=== PATIENT | male | born 1955 | race Caucasian/White ===

== ENCOUNTER 2019-11-12 10:33 | Inpatient (IN) | payer OTHER ==
[2019-11-12] MEDS ORDERED: Sodium Chloride 0.9% 10 ML Syringe FLUSH PRN (10:47)
[2019-11-12] MEDS ORDERED: Sodium Chloride 0.9% 1,000 ML IV ONE (10:49)
[2019-11-12] MEDS ORDERED: Albuterol/Ipratropium 3.0-0.5 MG/3 ML Neb Soln NEB ONE (10:51)
[2019-11-12] MEDS ORDERED: methylPREDNISolone Sodium Succinate 125 MG/2 ML SDV IVPUSH ONE (10:51)
[2019-11-12] MEDS ORDERED: Ondansetron 4 MG/2 ML SDV IV ONE (11:04)
[2019-11-12 11:30] LABS: ANION GAP 15.2; CHLORIDE,CL 99 mmol/L (101-111); SODIUM,NA 135 mmol/L (135-145)
[2019-11-12] MEDS ORDERED: Sodium Chloride 0.9% 1,000 ML IV SCH (12:15)
[2019-11-12] MEDS ORDERED: Sodium Chloride 0.9% 500 ML IV SCH (12:15)
[2019-11-12] MEDS ORDERED: Azithromycin 500 MG in Sodium Chloride 0.9% 250 ML IV ONE (12:26)
[2019-11-12] MEDS ORDERED: cefTRIAXone 2 GM in Sodium Chloride 0.9% 100 ML IV ONE (12:26)
--- NOTE | 2019-11-12 12:39 | EDM.PDOC ---
Scribed by Margaret Power 11/12/19 1102 for Perry Mar MD ED HPI GENERAL MEDICAL PROBLEM - General Chief Complaint: Respiratory Problem Stated Complaint: CHEST TIGHTNESS, FLU Time Seen by Provider: 11/12/19 10:42 Source of Information: Reports: Patient, RN, RN Notes Reviewed History Limitations: Reports: No Limitations - History of Present Illness INITIAL COMMENTS - FREE TEXT/NARRATIVE: Patient presents to ER stating that he has been sick since 11/03/19. Temperature on Wednesday was 101F. Pt c/o having no energy, no appetite, and generalized body aches. Admits to nonproductive cough. Nausea today, no vomiting or diarrhea. No influenza vaccine this year. Also c/o chills and shaking. No Tylenol today. Had Mucinex last night. 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 Onset: Gradual Onset Date: 11/03/19 Duration: Constant, Getting Worse Location: Reports: Generalized Severity: Severe Improves with: Reports: None Worsens with: Reports: None Context: Reports: Sick Contact ( has "viral flu symptoms") Associated Symptoms: Reports: No Other Symptoms Treatments LOT ASSOCIATE: Reports: Acetaminophen, Other Medication(s) 0 Pain Score (Numeric/FACES): 6 - Related Data Allergies Allergy/AdvReac Type Severity Reaction Status Date / Time No Known Allergies Allergy Verified 11/12/19 10:37 Home Meds: Home Meds . [No Known Home Meds] 11/12/19 [History] Past Medical History Respiratory History: Reports: Other (See Below) ([facility] ulises. Pulmonary histoplasmosis.) Endocrine/Metabolic History: Reports: Other (See Below) (hyponatremia) Dermatologic History: Reports: Psoriasis - Past Surgical History GI Surgical History: Reports: Colonoscopy Social & Family History - Family History Family Medical History: Noncontributory - Living Situation & Occupation Living situation: Reports: ED ROS GENERAL - Review of Systems Review Of Systems: Comprehensive ROS is negative, except as noted in HPI. ED EXAM, GENERAL - Physical Exam Exam: See Below Exam Limited By: No Limitations General Appearance: Alert, WD/WN, No Apparent Distress, Other (Acutely ill but non-toxic appearing) Eye Exam: Bilateral Eye: Normal Inspection Ears: Normal External Exam Nose: Normal Inspection, Normal Mucosa, No Blood Throat/Mouth: Normal Lips, Normal Teeth, Normal Gums, Normal Oropharynx, Normal Voice, No Airway Compromise, Other (Dry oral mucosa) Head: Atraumatic, Normocephalic Neck: Normal Inspection, Supple, Non-Tender, Full Range of Motion. No: Lymphadenopathy (L), Lymphadenopathy (R) Respiratory/Chest: No Respiratory Distress, No Accessory Muscle Use, Decreased Breath Sounds, Crackles, Rhonchi (Rt base). No: Rales, Wheezing, Stridor Cardiovascular: Normal Peripheral Pulses, Regular Rate, Rhythm, No Edema, No Murmur, Tachycardia GI/Abdominal: Normal Bowel Sounds, Soft, Non-Tender, No Organomegaly, No Distention, No Abnormal Bruit, No Mass Back Exam: Normal Inspection Extremities: Normal Inspection, Normal Range of Motion, Non-Tender, Normal Capillary Refill, No Pedal Edema Neurological: Alert, Oriented, CN II-XII Intact, Normal Cognition, Normal Gait, No Motor/Sensory Deficits Psychiatric: Depressed Mood, Flat Affect Skin Exam: Warm, Dry, Intact, Normal Color, No Rash Course - Vital Signs Last Recorded V/S: Last Vital Signs Temp 99.7 F 11/12/19 10:40 Pulse 101 H 11/12/19 11:39 Resp 16 11/12/19 11:39 BP 129/72 11/12/19 11:39 Pulse Ox 94 L 11/12/19 11:39 - Orders/Labs/Meds Orders: Active Orders 24 hr Category Date Time Status Peripheral IV Care [RC] . DIRECTED Care 11/12/19 10:48 Active RT Aerosol Therapy [RC] ASDIRECTED Care 11/12/19 10:52 Active CULTURE BLOOD [BC] Stat Lab 11/12/19 10:48 Ordered CULTURE BLOOD [BC] Stat Lab 11/12/19 10:54 Received INFLUENZA A+B AG SCREEN [RM] Stat Lab 11/12/19 10:51 Received Azithromycin [Zithromax] 500 mg Med 11/12/19 12:26 Active Sodium Chloride 0.9% [Normal Saline] 250 ml IV ONETIME Sodium Chloride 0.9% [Normal Saline] 1,000 ml Med 11/12/19 12:15 Active IV ASDIRECTED Sodium Chloride 0.9% [Saline Flush] Med 11/12/19 10:47 Active 10 ml FLUSH ASDIRECTED PRN cefTRIAXone [Rocephin] 2 gm Med 11/12/19 12:26 Active Sodium Chloride 0.9% [Normal Saline] 100 ml IV ONETIME Blood Culture x2 Reflex Set [OM.PC] Stat Oth 11/12/19 10:47 Ordered Peripheral IV Insertion Adult [OM.PC] Stat Oth 11/12/19 10:47 Ordered Medication Orders Sodium Chloride (Normal Saline) 1,000 mls @ 999 mls/hr IV ASDIRECTED THEA Last Admin: 11/12/19 12:14 Dose: 999 mls/hr Azithromycin 500 mg/ Sodium (Chloride) 250 mls @ 250 mls/hr IV ONETIME ONE Stop: 11/12/19 13:25 Ceftriaxone Sodium 2 gm/ (Sodium Chloride) 100 mls @ 200 mls/hr IV ONETIME ONE Stop: 11/12/19 12:55 Sodium Chloride (Saline Flush) 10 ml FLUSH ASDIRECTED PRN PRN Reason: Keep Vein Open Last Admin: 11/12/19 11:04 Dose: 10 ml Labs: Laboratory Tests 11/12/19 11/12/19 11/12/19 Range/Units 10:54 10:54 10:54 WBC 12.6 H (5.0-10.0) 10^3/uL RBC 5.24 (4.6-6.2) 10^6/uL Hgb 15.2 (14.0-18.0) g/dL Hct 44.1 (40.0-54.0) % MCV 84.2 (80-100) fL MCH 29.0 (27.0-34.0) pg MCHC 34.5 (33.0-35.0) g/dL Plt Count 209 (150-450) 10^3/uL Neut % (Auto) 90.2 H (42.2-75.2) % Lymph % (Auto) 5.5 L (20.5-50.1) % Dane % (Auto) 4.0 (2-8) % Eos % (Auto) 0.1 L (1.0-3.0) % Baso % (Auto) 0.2 (0.0-1.0) % Sodium 135 (135-145) mmol/L Potassium 4.2 (3.6-5.0) mmol/L Chloride 99 L (101-111) mmol/L Carbon Dioxide 25.0 (21.0-31.0) mmol/L Anion Gap 15.2 BUN 20 H (7-18) mg/dL Creatinine 1.1 (0.6-1.3) mg/dL Est Cr Clr Drug Dosing 62.83 mL/min Estimated GFR (MDRD) > 60 BUN/Creatinine Ratio 18.18 Glucose 113 H (74-105) mg/dL Lactic Acid 1.4 (0.5-2.0) mmol/L Calcium 8.8 (8.4-10.2) mg/dl Total Bilirubin 1.1 H (0.2-1.0) mg/dL AST 26 (10-42) IU/L ALT 24 (10-60) IU/L Alkaline Phosphatase 63 (42-121) IU/L Troponin I < 0.02 (0.00-0.02) ng/ml Total Protein 7.3 (6.7-8.2) g/dl Albumin 4.0 (3.2-5.5) g/dl Globulin 3.3 Albumin/Globulin Ratio 1.21 Influenza A/B: pending due to lab equipment malfunction. Meds: Medications Generic Name Dose Route Start Last Admin Trade Name Freq PRN Reason Stop Dose Admin Sodium Chloride 1,000 mls @ 999 mls/hr 11/12/19 12:15 11/12/19 12:14 Normal Saline IV 999 mls/hr ASDIRECTED THEA Administration Azithromycin 500 mg/ Sodium 250 mls @ 250 mls/hr 11/12/19 12:26 Chloride IV 11/12/19 13:25 ONETIME ONE Ceftriaxone Sodium 2 gm/ 100 mls @ 200 mls/hr 11/12/19 12:26 Sodium Chloride IV 11/12/19 12:55 ONETIME ONE Sodium Chloride 10 ml 11/12/19 10:47 11/12/19 11:04 Saline Flush FLUSH 10 ml ASDIRECTED PRN Administration Keep Vein Open Discontinued Medications Generic Name Dose Route Start Last Admin Trade Name Freq PRN Reason Stop Dose Admin Albuterol/Ipratropium 3 ml 11/12/19 10:51 11/12/19 11:03 Duoneb 3.0-0.5 Mg/3 Ml NEB 11/12/19 10:52 3 ml ONETIME ONE Administration Sodium Chloride 1,000 mls @ 999 mls/hr 11/12/19 10:49 11/12/19 11:03 Normal Saline IV 11/12/19 11:49 999 mls/hr .BOLUS ONE Administration Sodium Chloride 500 mls @ 999 mls/hr 11/12/19 12:15 Normal Saline IV .BOLUS THEA Methylprednisolone Sodium Succinate 125 mg 11/12/19 10:51 11/12/19 11:02 Solu-Medrol IVPUSH 11/12/19 10:52 125 mg ONETIME ONE Administration Ondansetron HCl 4 mg 11/12/19 11:04 11/12/19 11:21 Zofran IV 11/12/19 11:05 4 mg ONETIME ONE Administration - Radiology Interpretation Free Text/Narrative:: [facility] Final Radiology Report Call: [phone] assistance Online chat: [email or web address] Name: JESSE COATS Age: 63Years M Date: 11/12/2019 SSN: -- : [id number] Study: XR CHEST 2 VIEWS FRONTAL & LAT Requesting Physician: PERRY MAR Images: 2 Addl Studies: Provided Clinical History: Contrast: Contrast Medium: Contrast Amount: Contrast Method: CONFIDENTIALITY STATEMENT This report is intended only for use by the referring physician, and only in accordance with law. If you received this in error, call [phone]. Page 1 of 1 PROCEDURE INFORMATION: Exam: XR Chest, 2 Views Exam date and time: 11/12/2019 10:58 AM Age: 63 years old Clinical indication: Cough and fever TECHNIQUE: Imaging protocol: XR of the chest Views: 2 views. COMPARISON: CT Chest w Cont 01/31/2018 9:07 AM FINDINGS: Lungs: Subsegmental atelectasis at the right lung base. Pleural space: Unremarkable. No pleural effusion. No pneumothorax. Heart/Mediastinum: Unremarkable. No cardiomegaly. Bones/joints: Unremarkable. IMPRESSION: Subsegmental atelectasis at the right lung base. Thank you for allowing us to participate in the care of your patient. Dictated and Authenticated by: Nathan Darling MD 11/12/2019 11:55 AM Central Time ([place] & [place]) - Re-Assessments/Exams Free Text/Narrative Re-Assessment/Exam: 11/12/19 12:35 Pt arrives with Hx of febrile illness with cough and shortness of breath. Oxygen saturations 88-89% on RA and heart rate 125 on arrival to ER. Plan to admit the pt to Dr. Olivas to the med/surg. unit. Departure - Departure Time of Disposition: 12:36 (admitted to Dr. Olivas) Disposition: Admitted As Inpatient 67 Condition: Fair Clinical Impression: Hypoxia Pneumonia Qualifiers: Pneumonia type: due to unspecified organism Laterality: right Lung location: lower lobe of lung Qualified Code(s): J18.9 - Pneumonia, unspecified organism - Discharge Information *PRESCRIPTION DRUG MONITORING PROGRAM REVIEWED*: No *COPY OF PRESCRIPTION DRUG MONITORING REPORT IN PATIENT FANTASMA: No Referrals: Reggie Black MD [Primary Care Provider] - Forms: ED Department Discharge Sepsis Event Note - Evaluation Sepsis Screening Result: Possible Sepsis Risk - Focused Exam Vital Signs: Vital Signs Temp Pulse Resp BP Pulse Ox 11/12/19 11:39 101 H 16 129/72 94 L 11/12/19 10:42 93 L 11/12/19 10:40 99.7 F 125 H 122/73 18 L Date Exam was Performed: 11/12/19 Time Exam was Performed: 12:39 - My Orders Last 24 Hours: My Active Orders 11/12/19 10:47 Sodium Chloride 0.9% [Saline Flush] 10 ml FLUSH ASDIRECTED PRN Blood Culture x2 Reflex Set [OM.PC] Stat Peripheral IV Insertion Adult [OM.PC] Stat 11/12/19 10:48 Peripheral IV Care [RC] . DIRECTED CULTURE BLOOD [BC] Stat 11/12/19 10:51 INFLUENZA A+B AG SCREEN [RM] Stat 11/12/19 10:52 RT Aerosol Therapy [RC] ASDIRECTED 11/12/19 10:54 CULTURE BLOOD [BC] Stat 11/12/19 12:15 Sodium Chloride 0.9% [Normal Saline] 1,000 ml IV ASDIRECTED 11/12/19 12:26 Azithromycin [Zithromax] 500 mg Sodium Chloride 0.9% [Normal Saline] 250 ml IV ONETIME cefTRIAXone [Rocephin] 2 gm Sodium Chloride 0.9% [Normal Saline] 100 ml IV ONETIME - Assessment/Plan Last 24 Hours: My Active Orders 11/12/19 10:47 Sodium Chloride 0.9% [Saline Flush] 10 ml FLUSH ASDIRECTED PRN Blood Culture x2 Reflex Set [OM.PC] Stat Peripheral IV Insertion Adult [OM.PC] Stat 11/12/19 10:48 Peripheral IV Care [RC] . DIRECTED CULTURE BLOOD [BC] Stat 11/12/19 10:51 INFLUENZA A+B AG SCREEN [RM] Stat 11/12/19 10:52 RT Aerosol Therapy [RC] ASDIRECTED 11/12/19 10:54 CULTURE BLOOD [BC] Stat 11/12/19 12:15 Sodium Chloride 0.9% [Normal Saline] 1,000 ml IV ASDIRECTED 11/12/19 12:26 Azithromycin [Zithromax] 500 mg Sodium Chloride 0.9% [Normal Saline] 250 ml IV ONETIME cefTRIAXone [Rocephin] 2 gm Sodium Chloride 0.9% [Normal Saline] 100 ml IV ONETIME I have read and agree with the documentation that has been completed regarding this visit. By signing this record, I attest that the documentation was completed in my physical presence and is an accurate record of the encounter.
[2019-11-12] MEDS ORDERED: Albuterol/Ipratropium 3.0-0.5 MG/3 ML Neb Soln NEB PRN (13:03)
[2019-11-12] MEDS ORDERED: Ondansetron 4 MG/2 ML SDV IVPUSH PRN (13:03)
[2019-11-12] MEDS ORDERED: Albuterol 0.083% 2.5 MG/3 ML Neb Soln NEB PRN (13:03)
[2019-11-12] MEDS ORDERED: Acetaminophen 325 MG Tab PO PRN (13:03)
--- NOTE | 2019-11-12 13:15 | PCM.HP ---
H&P History of Present Illness - General Date of Service: 11/12/19 Admit Problem/Dx: Admission Diagnosis/Problem Admission Diagnosis/Problem Pneumonia Source of Information: Patient - History of Present Illness Initial Comments - Free Text/Narative: Is a 63-year-old man with medical history of histoplasmosis and psoriasis. The patient presented to the emergency room with complaint of cough and shortness of breath. He has been coughing for the past one week. Over time it has worsened. Now describes it as severe. Has associated shortness of breath which is present at rest and worse with activity. Patient presented to the emergency room and was noted to be hypoxic with oxygen saturation down in the 80s. He was tachycardic. He had to be placed on supplemental oxygen. Indicates that he has had intermittent fevers with temperature up to 102. No chest pain. No abdominal pain and no change in bowel or urinary habit. No nausea and no vomiting 0 Pain Score (Numeric/FACES): 6 - Related Data Allergies/Adverse Reactions: Allergies Allergy/AdvReac Type Severity Reaction Status Date / Time No Known Allergies Allergy Verified 11/12/19 10:37 Home Medications: Home Meds . [No Known Home Meds] 11/12/19 [History] Past Medical History Respiratory History: Reports: Other (See Below) ([facility] ulises. Pulmonary histoplasmosis.) Other Respiratory History: histoplasmosis 2017 Endocrine/Metabolic History: Reports: Other (See Below) (hyponatremia) Dermatologic History: Reports: Psoriasis - Past Surgical History GI Surgical History: Reports: Colonoscopy Social & Family History - Family History Family Medical History: Noncontributory - Tobacco Use Smoking Status *Q: Never Smoker - Recreational Drug Use Recreational Drug Use: No - Living Situation & Occupation Living situation: Reports: H&P Review of Systems - Review of Systems: Review Of Systems: See Below General: Reports: Fever, Chills, Malaise, Weakness HEENT: Reports: Sinus Congestion Pulmonary: Reports: Shortness of Breath, Cough Cardiovascular: Reports: Dyspnea on Exertion Gastrointestinal: Reports: No Symptoms Musculoskeletal: Reports: No Symptoms Skin: Reports: No Symptoms Psychiatric: Reports: No Symptoms Exam - Exam Exam: See Below - Vital Signs Vital Signs: Last Vital Signs Temp 37.6 C 11/12/19 10:40 Pulse 101 H 11/12/19 11:39 Resp 16 11/12/19 11:39 BP 129/72 11/12/19 11:39 Pulse Ox 94 L 11/12/19 11:39 Weight: 75.296 kg - Exam Quality Assessment: Supplemental Oxygen General: Alert, Oriented, Cooperative Neck: Supple, Trachea Midline, 2 Lungs: Normal Respiratory Effort, Decreased Breath Sounds, Rhonchi Cardiovascular: Regular Rate, Regular Rhythm, Tachycardia GI/Abdominal Exam: Normal Bowel Sounds, Soft, Non-Tender, No Organomegaly, No Distention, No Abnormal Bruit, No Mass, Pelvis Stable Extremities: Normal Inspection, Normal Range of Motion, Non-Tender, No Pedal Edema, Normal Capillary Refill - Patient Data Lab Results Last 24 hrs: Laboratory Results - last 24 hr 11/12/19 11/12/19 11/12/19 Range/Units 10:54 10:54 10:54 WBC 12.6 H (5.0-10.0) 10^3/uL RBC 5.24 (4.6-6.2) 10^6/uL Hgb 15.2 (14.0-18.0) g/dL Hct 44.1 (40.0-54.0) % MCV 84.2 (80-100) fL MCH 29.0 (27.0-34.0) pg MCHC 34.5 (33.0-35.0) g/dL Plt Count 209 (150-450) 10^3/uL Neut % (Auto) 90.2 H (42.2-75.2) % Lymph % (Auto) 5.5 L (20.5-50.1) % Kinney % (Auto) 4.0 (2-8) % Eos % (Auto) 0.1 L (1.0-3.0) % Baso % (Auto) 0.2 (0.0-1.0) % Sodium 135 (135-145) mmol/L Potassium 4.2 (3.6-5.0) mmol/L Chloride 99 L (101-111) mmol/L Carbon Dioxide 25.0 (21.0-31.0) mmol/L Anion Gap 15.2 BUN 20 H (7-18) mg/dL Creatinine 1.1 (0.6-1.3) mg/dL Est Cr Clr Drug Dosing 62.83 mL/min Estimated GFR (MDRD) > 60 BUN/Creatinine Ratio 18.18 Glucose 113 H (74-105) mg/dL Lactic Acid 1.4 (0.5-2.0) mmol/L Calcium 8.8 (8.4-10.2) mg/dl Total Bilirubin 1.1 H (0.2-1.0) mg/dL AST 26 (10-42) IU/L ALT 24 (10-60) IU/L Alkaline Phosphatase 63 (42-121) IU/L Troponin I < 0.02 (0.00-0.02) ng/ml Total Protein 7.3 (6.7-8.2) g/dl Albumin 4.0 (3.2-5.5) g/dl Globulin 3.3 Albumin/Globulin Ratio 1.21 Result Diagrams: 11/12/19 10:54 11/12/19 10:54 Problem List Initiated/Reviewed/Updated: Yes Orders Last 24hrs: Active Orders 24 hr Category Date Time Status Admission Status [Patient Status] [ADT] Routine ADT 11/12/19 12:51 Active Patient Status [ADT] Routine ADT 11/12/19 13:03 Ordered Intake and Output [RC] QSHIFT Care 11/12/19 13:04 Ordered Oxygen Therapy [RC] PRN Care 11/12/19 13:03 Ordered Peripheral IV Care [RC] . DIRECTED Care 11/12/19 10:48 Active Pulse Oximetry [RC] PRN Care 11/12/19 13:04 Ordered RT Aerosol Therapy [RC] ASDIRECTED Care 11/12/19 10:52 Active RT Aerosol Therapy [RC] ASDIRECTED Care 11/12/19 13:06 Ordered Up ad Joelle [RC] ASDIRECTED Care 11/12/19 13:03 Ordered VTE/DVT Education [RC] PER UNIT ROUTINE Care 11/12/19 13:03 Ordered Vital Signs [RC] Q4H Care 11/12/19 13:03 Ordered Respiratory Care Assess and Treatment [CONS] Routine Cons 11/12/19 13:03 Ordered Regular Diet [DIET] Diet 11/12/19 Lunch Ordered BASIC METABOLIC PANEL,BMP [CHEM] AM Lab 11/13/19 05:11 Ordered CBC WITH AUTO DIFF [HEME] AM Lab 11/13/19 05:11 Ordered CULTURE BLOOD [BC] Stat Lab 11/12/19 10:48 Ordered CULTURE BLOOD [BC] Stat Lab 11/12/19 10:54 Received CULTURE SPUTUM + SMEAR [RM] Stat Lab 11/12/19 13:03 Ordered HEPATIC FUNCTION PANEL,HFP [CHEM] AM Lab 11/13/19 05:11 Ordered INFLUENZA A+B AG SCREEN [RM] Stat Lab 11/12/19 10:51 Received Acetaminophen [Tylenol] Med 11/12/19 13:03 Ordered 650 mg PO Q4H PRN Albuterol [Proventil Neb Soln] Med 11/12/19 13:03 Ordered 2.5 mg NEB Q2H PRN Albuterol/Ipratropium [DuoNeb 3.0-0.5 MG/3 ML] Med 11/12/19 13:03 Ordered 3 ml NEB Q6HRRT PRN Azithromycin [Zithromax] 500 mg Med 11/12/19 12:26 Active Sodium Chloride 0.9% [Normal Saline] 250 ml IV ONETIME Azithromycin [Zithromax] 500 mg Med 11/12/19 13:15 Ordered Sodium Chloride 0.9% [Normal Saline] 250 ml IV Q24H Enoxaparin [Lovenox] Med 11/12/19 13:15 Ordered 40 mg SUBCUT DAILY Ondansetron [Zofran] Med 11/12/19 13:03 Ordered 4 mg IVPUSH Q6H PRN Sodium Chloride 0.9% @ 125 MLS/HR (1000ml) Med 11/12/19 13:15 Ordered Sodium Chloride 0.9% [Normal Saline] 1,000 ml IV ASDIRECTED Sodium Chloride 0.9% [Normal Saline] 1,000 ml Med 11/12/19 12:15 Active IV ASDIRECTED Sodium Chloride 0.9% [Saline Flush] Med 11/12/19 10:47 Active 10 ml FLUSH ASDIRECTED PRN cefTRIAXone [Rocephin] 1 gm Med 11/12/19 13:15 Ordered Sodium Chloride 0.9% [Normal Saline] 50 ml IV Q24H Blood Culture x2 Reflex Set [OM.PC] Stat Oth 11/12/19 10:47 Ordered Peripheral IV Insertion Adult [OM.PC] Stat Oth 11/12/19 10:47 Ordered Resuscitation Status Routine Resus Stat 11/12/19 13:03 Ordered Medication Orders Acetaminophen (Tylenol) 650 mg PO Q4H PRN PRN Reason: Pain (Mild 1-3)/fever Albuterol (Proventil Neb Soln) 2.5 mg NEB Q2H PRN PRN Reason: shortness of breath/wheezing Albuterol/Ipratropium (Duoneb 3.0-0.5 Mg/3 Ml) 3 ml NEB Q6HRRT PRN PRN Reason: shortness of breath/wheezing Enoxaparin Sodium (Lovenox) 40 mg SUBCUT DAILY THEA Sodium Chloride (Normal Saline) 1,000 mls @ 999 mls/hr IV ASDIRECTED THEA Last Admin: 11/12/19 12:14 Dose: 999 mls/hr Azithromycin 500 mg/ Sodium (Chloride) 250 mls @ 250 mls/hr IV ONETIME ONE Stop: 11/12/19 13:25 Sodium Chloride (Normal Saline) 1,000 mls @ 125 mls/hr IV ASDIRECTED THEA Azithromycin 500 mg/ Sodium (Chloride) 250 mls @ 250 mls/hr IV Q24H THEA Ceftriaxone Sodium 1 gm/ (Sodium Chloride) 50 mls @ 50 mls/hr IV Q24H THEA Ondansetron HCl (Zofran) 4 mg IVPUSH Q6H PRN PRN Reason: Nausea/Vomiting Sodium Chloride (Saline Flush) 10 ml FLUSH ASDIRECTED PRN PRN Reason: Keep Vein Open Last Admin: 11/12/19 11:04 Dose: 10 ml Assessment/Plan Comment:: #. Acute hypoxemic respiratory failure This is probably due to acute bronchitis on pneumonia #. Probable sepsis The patient does have tachycardia and has elevated white cell count Again likely due to pneumonia #. Pneumonia Probably, community acquired #. Elevated liver enzymes Total bilirubin is elevated up to 1.1 Patient denies abdominal pain all symptoms #. History of pulmonary histoplasmosis Completed treatment. Had CT scan that showed improvement and resolution. Plan: Admit patient to medical floor Send sputum for Gram stain and cultures Sputum cultures Lactic acid is normal Intravenous fluid with normal saline going at 125 mL an hour Empiric antibiotics with intravenous ceftriaxone and azithromycin Patient's medical chart reviewed.
[2019-11-12] MEDS: Sodium Chloride 0.9% 1,000 ML IV SCH ×2 (13:40→18:09)
[2019-11-12] MEDS: Doxycycline 100 MG in Sodium Chloride 0.9% 100 ML IV SCH (17:10)
[2019-11-12] MEDS: Enoxaparin 40 MG/0.4 ML Syringe SUBCUT SCH (17:29)
[2019-11-13] MEDS: Sodium Chloride 0.9% 1,000 ML IV SCH (02:06)
[2019-11-13] MEDS: Doxycycline 100 MG in Sodium Chloride 0.9% 100 ML IV SCH (03:54)
[2019-11-13 06:57] LABS: ANION GAP 12.1; CHLORIDE,CL 109 mmol/L (101-111); SODIUM,NA 138 mmol/L (135-145)
[2019-11-13] MEDS: Enoxaparin 40 MG/0.4 ML Syringe SUBCUT SCH (09:01)
--- NOTE | 2019-11-13 10:44 | PCM.DCSUM1 ---
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 He presented via the emergency room with complaint of shortness of breath, cough and fever going on for one week. Chest x-ray showed right lower lobe density likely pneumonia. Patient was transiently hypoxic especially with ambulation. He got admitted to the hospital was started on intravenous antibiotics. He symptoms have subsided and he has been ambulatory without any distress. His white cell count however went up to 20,000. He received a dose of Solu Medrol 125 mg in the emergency room. Patient will be discharged at his request and will follow up with primary care provider. He will also have a repeat complete blood count in one day. She has clinical condition improved faster than anticipated at admission #. Acute hypoxemic respiratory failure This is probably due to acute bronchitis on pneumonia Resolved #. Probable sepsis The patient does have tachycardia and has elevated white cell count Again likely due to pneumonia #. Pneumonia Probably, community acquired #. Elevated liver enzymes Total bilirubin was elevated up to 1.1 Patient denies abdominal pain all symptoms #. History of pulmonary histoplasmosis Completed treatment. Had CT scan that showed improvement and resolution. - Discharge Data Discharge Date: 11/13/19 Discharge Disposition: Home, Self-Care 01 Condition: Good - Referral to Home Health Primary Care Physician: Reggie Black MD - Patient Summary/Data Consults: Consultations 11/12/19 13:03 Respiratory Care Assess and Treatment [CONS] Routine - Patient Instructions Diet: Usual Diet as Tolerated Activity: As Tolerated Driving: May Drive Today Notify Provider of: Fever, Swelling and Redness Other/Special Instructions: F/up in one day. CBC on 11/13/2019 - Discharge Plan *PRESCRIPTION DRUG MONITORING PROGRAM REVIEWED*: No *COPY OF PRESCRIPTION DRUG MONITORING REPORT IN PATIENT FANTASMA: No Prescriptions/Med Rec: Albuterol [Proventil Neb Soln] 2.5 mg NEB Q2H PRN #1 neb PRN Reason: shortness of breath/wheezing Cefpodoxime [Vantin] 200 mg PO BID #20 tablet Doxycycline [Vibramycin] 100 mg PO BID #20 cap Home Medications: Home Meds Albuterol [Proventil Neb Soln] 2.5 mg NEB Q2H PRN #1 neb 11/13/19 [Rx] Cefpodoxime [Vantin] 200 mg PO BID #20 tablet 11/13/19 [Rx] Doxycycline [Vibramycin] 100 mg PO BID #20 cap 11/13/19 [Rx] Oxygen Therapy Mode: Room Air Patient Handouts: Albuterol inhalation powder, White Blood Cell Count Test, Doxycycline tablets or capsules, Cefpodoxime oral suspension Referrals: Reggie Black MD [Primary Care Provider] - - Discharge Summary/Plan Comment DC Time >30 min.: No - Review of Systems General: Reports: No Symptoms HEENT: Reports: No Symptoms Pulmonary: Reports: Cough Cardiovascular: Reports: No Symptoms Gastrointestinal: Reports: No Symptoms - Patient Data Vitals - Most Recent: Last Vital Signs Temp 36.6 C 11/13/19 07:44 Pulse 55 L 11/13/19 07:44 Resp 20 11/13/19 07:44 BP 111/71 11/13/19 07:44 Pulse Ox 96 11/13/19 07:44 Weight - Most Recent: 76.657 kg I&O - Last 24 hours: Intake & Output 11/12/19 11/13/19 11/13/19 22:59 06:59 14:59 Intake Total 950 1476 999 Output Total 1000 Balance 950 476 999 Lab Results - Last 24 hrs: Laboratory Results - last 24 hr 11/12/19 11/12/19 11/12/19 Range/Units 10:54 10:54 10:54 WBC 12.6 H (5.0-10.0) 10^3/uL RBC 5.24 (4.6-6.2) 10^6/uL Hgb 15.2 (14.0-18.0) g/dL Hct 44.1 (40.0-54.0) % MCV 84.2 (80-100) fL MCH 29.0 (27.0-34.0) pg MCHC 34.5 (33.0-35.0) g/dL Plt Count 209 (150-450) 10^3/uL Neut % (Auto) 90.2 H (42.2-75.2) % Lymph % (Auto) 5.5 L (20.5-50.1) % [place] % (Auto) 4.0 (2-8) % Eos % (Auto) 0.1 L (1.0-3.0) % Baso % (Auto) 0.2 (0.0-1.0) % Sodium 135 (135-145) mmol/L Potassium 4.2 (3.6-5.0) mmol/L Chloride 99 L (101-111) mmol/L Carbon Dioxide 25.0 (21.0-31.0) mmol/L Anion Gap 15.2 BUN 20 H (7-18) mg/dL Creatinine 1.1 (0.6-1.3) mg/dL Est Cr Clr Drug Dosing 62.83 mL/min Estimated GFR (MDRD) > 60 BUN/Creatinine Ratio 18.18 Glucose 113 H (74-105) mg/dL Lactic Acid 1.4 (0.5-2.0) mmol/L Calcium 8.8 (8.4-10.2) mg/dl Total Bilirubin 1.1 H (0.2-1.0) mg/dL Direct Bilirubin (0.0-0.2) mg/dL Indirect Bilirubin AST 26 (10-42) IU/L ALT 24 (10-60) IU/L Alkaline Phosphatase 63 (42-121) IU/L Troponin I < 0.02 (0.00-0.02) ng/ml Total Protein 7.3 (6.7-8.2) g/dl Albumin 4.0 (3.2-5.5) g/dl Globulin 3.3 Albumin/Globulin Ratio 1.21 11/13/19 11/13/19 Range/Units 06:07 06:07 WBC 20.4 H (5.0-10.0) 10^3/uL RBC 4.32 L (4.6-6.2) 10^6/uL Hgb 12.5 L D (14.0-18.0) g/dL Hct 36.2 L (40.0-54.0) % MCV 83.8 (80-100) fL MCH 28.9 (27.0-34.0) pg MCHC 34.5 (33.0-35.0) g/dL Plt Count 196 (150-450) 10^3/uL Neut % (Auto) 89.0 H (42.2-75.2) % Lymph % (Auto) 5.6 L (20.5-50.1) % [place] % (Auto) 5.4 (2-8) % Eos % (Auto) 0.0 L (1.0-3.0) % Baso % (Auto) 0.0 (0.0-1.0) % Sodium 138 (135-145) mmol/L Potassium 4.1 (3.6-5.0) mmol/L Chloride 109 (101-111) mmol/L Carbon Dioxide 21.0 (21.0-31.0) mmol/L Anion Gap 12.1 BUN 16 (7-18) mg/dL Creatinine 0.9 (0.6-1.3) mg/dL Est Cr Clr Drug Dosing 75.81 mL/min Estimated GFR (MDRD) > 60 BUN/Creatinine Ratio Glucose 124 H (74-105) mg/dL Lactic Acid (0.5-2.0) mmol/L Calcium 7.9 L (8.4-10.2) mg/dl Total Bilirubin 0.9 (0.2-1.0) mg/dL Direct Bilirubin 0.1 (0.0-0.2) mg/dL Indirect Bilirubin 0.8 AST 17 (10-42) IU/L ALT 18 (10-60) IU/L Alkaline Phosphatase 45 (42-121) IU/L Troponin I (0.00-0.02) ng/ml Total Protein 5.7 L (6.7-8.2) g/dl Albumin 2.9 L (3.2-5.5) g/dl Globulin 2.8 Albumin/Globulin Ratio 1.04 MIGUELINA Results - Last 24 hrs: Microbiology 11/12/19 18:21 Gram Stain - Final Sputum - Expectorated 11/12/19 10:51 Influenza Type A Antigen Screen - Final Nasal, Unspecified NEGATIVE INFLUENZA A VIRUS AG REFERENCE RANGE: NEGATIVE Influenza Type B Antigen Screen - Final NEGATIVE INFLUENZA B VIRUS AG REFERENCE RANGE: NEGATIVE Med Orders - Current: Current Medications Acetaminophen (Tylenol) 650 mg PO Q4H PRN PRN Reason: Pain (Mild 1-3)/fever Albuterol (Proventil Neb Soln) 2.5 mg NEB Q2H PRN PRN Reason: shortness of breath/wheezing Albuterol/Ipratropium (Duoneb 3.0-0.5 Mg/3 Ml) 3 ml NEB Q6HRRT PRN PRN Reason: shortness of breath/wheezing Enoxaparin Sodium (Lovenox) 40 mg SUBCUT DAILY THEA Last Admin: 11/13/19 09:01 Dose: Not Given Sodium Chloride (Normal Saline) 1,000 mls @ 125 mls/hr IV ASDIRECTED [facility] Last Infusion: 11/13/19 10:39 Dose: Infused Ceftriaxone Sodium 1 gm/ (Sodium Chloride) 50 mls @ 50 mls/hr IV Q24H THEA Doxycycline Hyclate 100 mg/ (Sodium Chloride) 100 mls @ 100 mls/hr IV Q12H THEA Last Admin: 11/13/19 03:54 Dose: 100 mls/hr Ondansetron HCl (Zofran) 4 mg IVPUSH Q6H PRN PRN Reason: Nausea/Vomiting Sodium Chloride (Saline Flush) 10 ml FLUSH ASDIRECTED PRN PRN Reason: Keep Vein Open Last Admin: 11/12/19 11:04 Dose: 10 ml Discontinued Medications Albuterol/Ipratropium (Duoneb 3.0-0.5 Mg/3 Ml) 3 ml NEB ONETIME ONE Stop: 11/12/19 10:52 Last Admin: 11/12/19 11:03 Dose: 3 ml Sodium Chloride (Normal Saline) 1,000 mls @ 999 mls/hr IV .BOLUS ONE Stop: 11/12/19 11:49 Last Admin: 11/12/19 11:03 Dose: 999 mls/hr Sodium Chloride (Normal Saline) 500 mls @ 999 mls/hr IV .BOLUS THEA Sodium Chloride (Normal Saline) 1,000 mls @ 999 mls/hr IV ASDIRECTED [facility] Last Admin: 11/12/19 12:14 Dose: 999 mls/hr Azithromycin 500 mg/ Sodium (Chloride) 250 mls @ 250 mls/hr IV ONETIME ONE Stop: 11/12/19 13:25 Last Admin: 11/12/19 13:40 Dose: 250 mls/hr Ceftriaxone Sodium 2 gm/ (Sodium Chloride) 100 mls @ 200 mls/hr IV ONETIME ONE Stop: 11/12/19 12:55 Last Admin: 11/12/19 12:56 Dose: 200 mls/hr Azithromycin 500 mg/ Sodium (Chloride) 250 mls @ 250 mls/hr IV Q24H THEA Methylprednisolone Sodium Succinate (Solu-Medrol) 125 mg IVPUSH ONETIME ONE Stop: 11/12/19 10:52 Last Admin: 11/12/19 11:02 Dose: 125 mg Ondansetron HCl (Zofran) 4 mg IV ONETIME ONE Stop: 11/12/19 11:05 Last Admin: 11/12/19 11:21 Dose: 4 mg - Exam General: Reports: Alert, Oriented, Cooperative Neck: Reports: Supple Lungs: Reports: Clear to Auscultation, Normal Respiratory Effort Cardiovascular: Reports: Regular Rate, Regular Rhythm GI/Abdominal Exam: Normal Bowel Sounds, Soft, Non-Tender, No Organomegaly, No Distention, No Abnormal Bruit, No Mass, Pelvis Stable
[2019-11-13] MEDS ORDERED: cefTRIAXone 1 GM in Sodium Chloride 0.9% 50 ML IV SCH (12:00)
[2019-11-13] MEDS ORDERED: Azithromycin 500 MG in Sodium Chloride 0.9% 250 ML IV SCH (14:00)
== END 2019-11-13 11:45 | disposition home or self-care (01) | DRG 871 ==
LOC: DL.ED 10:33 → DL.MS 12:51 → UNDOADMIN 12:53 → DL.MS 12:53
PROVIDERS: ADMIT Hospitalist; ATTEND Hospitalist
DX: A41.9 Sepsis, unspecified organism (principal); J18.9 Pneumonia, unspecified organism; J96.01 Acute respiratory failure with hypoxia; J20.9 Acute bronchitis, unspecified; R94.5 Abnormal results of liver function studies; Z79.51 Long term (current) use of inhaled steroids; Z79.2 Long term (current) use of antibiotics; Z79.899 Other long term (current) drug therapy; Z99.81 Dependence on supplemental oxygen; Z86.19 Personal history of other infectious and parasitic diseases; R74.8 Abnormal levels of other serum enzymes
CPT/HCPCS: 36415; 71046; 80048; 80053; 80076; 83605; 84484; 85025; 87040; 87070; 87205; 87804; 96361; 96374; 96375; 99285-25; J0456; J0696; J2405; J2930; J3490; J7030; J7050; J7620-GY